=== PATIENT | female | born 1970 | race Caucasian/White ===

== ENCOUNTER 2024-08-16 13:50 | Emergency (ER) | payer OTHER, SELFPAY ==
[2024-08-16 14:26] LABS: % Eosinophils 3.4 % (0-6); % Immature Granulocytes 0.2 % (0-0.5); % Lymphocytes 38.2 % (20.5-51.1); % Monocytes 15.4 % (1.7-9.3); % Neutrophils 41.8 % (42.2-75.2); Absolute Basophils 0.1 10^3/uL (0-0.2); Absolute Eosinophils 0.2 10^3/uL (0-0.7); Absolute Lymphocytes 2.2 10^3/uL (1.2-3.4); Absolute Monocytes 0.9 10^3/uL (0.1-0.6); Absolute Neutrophils 2.4 10^3/uL (1.4-6.5); Hematocrit 42.1 % (37.0-47.0); Hemoglobin 14.3 g/dL (12.0-16.0); Mean Corpuscular Hgb 28.3 pg (27.0-31.0); Mean Corpuscular Volume 83.4 fL (81.0-99.0); Mean Platelet Volume 9.2 fL (7.4-10.4); Nucleated Red Blood Cells % 0 %; Platelet Count 270 10^3/uL (130-400); Red Blood Cell Count 5.05 10^6/uL (4.20-5.40); Red Cell Dist. Width 12.2 % (11.5-14.5); White Blood Cell Count 5.8 10^3/uL (4.8-10.8)
[2024-08-16 14:41] LABS: ALT (SGPT) 36 U/L (0-35); AST (SGOT) 37 U/L (14-36); Albumin 4.4 g/dl (3.5-5.0); Alkaline Phosphatase 73 U/L (38-126); Blood Urea Nitrogen 16 mg/dl (7-17); Calcium 9.3 mg/dl (8.4-10.2); Carbon Dioxide 30 mmol/L (22-30); Chloride 98 mmol/L (98-107); Glucose 94 mg/dl (70-99); Potassium 4.7 mmol/L (3.5-5.1); Sodium 136 mmol/L (135-145); Total Bilirubin 0.3 mg/dl (0.2-1.3); Total Protein 7.1 g/dl (6.3-8.2)
[2024-08-16 14:51] LABS: Troponin I < 0.012 ng/ml
[2024-08-16 14:54] LABS: eGFR 59.34
[2024-08-16 15:32] VITALS: BP 121/82
[2024-08-16 15:38] VITALS: BMI 27.5
[2024-08-16 16:00] VITALS: BP 128/83
[2024-08-16] MEDS: DECADRON 10 MG PO (16:23)
[2024-08-16] MEDS: MAALOX 40 PO (16:23)
--- NOTE | 2024-08-16 16:39 | ED.GENMED ---
History of Present Illness
General
Chief Complaint: Chest Pain
Source: patient and spouse
Exam Limitations: none
Time Seen by Provider: 08/16/24 15:25
Nursing documentation reviewed up to this point in time: agreed with
History of Present Illness
History of Present Illness:
54-year-old female presenting to the emergency department today for concerns of a burning achy discomfort to the left chest over the past few days. Has had an upper respiratory syndrome over the past 4 days. Believes it could be related. No
fevers today. Denies any significant shortness of breath nausea vomiting or diarrhea. Took some Ativan as she thought there could be some anxiety component without significant improvement.
Past History
Past History
ED Past Medical History: Other (bowel and bladder prolapse); Negative Asthma, HTN, Hypercholesterolemia or NIDDM
ED Past Surgical History: Gynecological (January 27 2015 Reconstruction of a prolapsed bladder/bowel with a hysterectomy)
Social History
Tobacco: Non-smoker
Alcohol: None
Drug: None
Personal:
Living: with family
Employment: Employed
Family History
Family History: Other
Review of Systems
Review of Systems
Allergies reviewed?: Yes
All Other Systems: ROS reviewed and negative except as documented in HPI and ROS
Phy Exam
Physical Exam
Physical Exam:
GENERAL: Alert , in no apparent distress
EYE: pupils equal and reactive
NECK: Supple, no significant adenopathy.
ENT: o/p clr, mmm.
CARDIAC: Regular rate and rhythm .
LUNGS: Clear breath sounds bilaterally, no acute respiratory distress, no wheezes/rales/rhonchi
ABDOMEN: Soft, without focal tenderness, no r/g, no cvat
NEUROLOGICAL: Alert and oriented, no focal neuro deficits
SKIN: Warm and dry, skin intact.
MUSCULOSKELETAL: No edema, well perfused.
PSYCH: Normal and appropriate interaction.
Scores
Heart Score for Chest Pain Patients
STEMI patient?: No
History: Slightly or Non-Suspicious
ECG: Normal
Age: >45 - <65 years
Risk Factors: 1 or 2 Risk Factors
Troponin: </= Normal Limit
Heart Score for Chest Pain Patients: 2
Heart Score Risk: 2.5% MACE over next 6 weeks
Course
Orders/Labs/Results
Orders:
Orders
08/16/24 13:51
Electrocardiogram (*1) Urgent
Reason for Study: Chest Pain
EKG- Treatment ONCE
08/16/24 14:02
CXR2 [CR Chest - 2 Views ] Urgent
Comment:
Reason For Exam: chest pain
08/16/24 14:11
Complete Blood Count/With Diff Urgent
Comprehensive Metabolic Panel Urgent
Troponin I Urgent
08/16/24 16:10
Dexamethasone [Decadron] 10 mg PO NOW STA
Mag Hydrox/Al Hydrox/Simeth [Maalox] 30 ml Phenobarb/Hyoscy/Atropine/Scop [] 10 ml PO NOW
08/16/24 16:20
Mag Hydrox/Al Hydrox/Simeth [Maalox] 30 ml .ROUTE .STK-MED ONE
Phenobarb/Hyoscy/Atropine/Scop [] 10 ml .ROUTE .STK-MED ONE
Abnormal Lab Results
08/16/24
14:11
Absolute Monos (auto) 0.9 H 10^3/uL
(0.1-0.6)
Neutrophils % 41.8 L %
(42.2-75.2)
Monocytes % 15.4 H %
(1.7-9.3)
Creatinine 1.1 H mg/dL
(0.6-1.0)
AST 37 H U/L
(14-36)
ALT 36 H U/L
(0-35)
08/16/24 14:11
08/16/24 14:11
Vital Signs
Initial and Last Documented VS:
Initial Vital Signs
Temp Pulse Resp Pulse Ox
98.2 F 99 16 99
08/16/24 13:59 08/16/24 13:59 08/16/24 13:59 08/16/24 13:59
Last Documented Vital Signs
Temp Pulse Resp BP Pulse Ox
98.2 F 79 12 128/83 96
08/16/24 13:59 08/16/24 16:15 08/16/24 16:15 08/16/24 16:00 08/16/24 16:15
MDM/Problems Addressed
MDM/Problems Addressed:
54-year-old female presenting to the emergency department today with concerns of chest pain. Here she has a normal EKG normal chest x-ray normal labs normal troponin level. Patient does have a viral syndrome over the past 4 days or so. On
examination she does have a very end expiratory wheeze and was given a dose of dexamethasone otherwise good air movement. Patient stable for outpatient follow-up no apparent life-threatening etiology. Return precautions given.
*Critical Care Note
Total Time (30-74mins, 75-104mins- exclusive of procedures): Not Applicable
ED Attending Note
-
Portions of this chart may have been created with voice recognition software.� Occasional wrong word or��sound alike� substitutions may have occurred due to the inherent limitations of voice recognition software.
Discharge Plan
Departure
Patient Disposition: Home (Routine Discharge)
Date of Disposition: 08/16/24
Time of Disposition: 16:39
Patient with high blood pressure during this ER visit?: No
Condition: Good
Covid-19: Not Applicable
Discharge Problem:
Chest pain
Instructions: Chest Pain PCP Follow Up
Prescriptions:
No Action
ascorbic acid (vitamin C) [Vitamin C] 500 MG tablet
500 mg PO DAILY
L.acid,casei,plant,saliv-B.ani [Probiotic Formula] 1 EACH capsule
1 ea PO TID
Fish Oil
3 cap PO DAILY
Vitamin B 100 Complex
1 tab PO DAILY
cyclobenzaprine [Flexeril] 10 MG tablet
10 mg PO TID PRN (Reason: SPASM) Qty: 10 0RF
oxycodone-acetaminophen 5 MG/325 MG tablet
1 tab PO Q4HPRN PRN (Reason: pain) Qty: 13 0RF
fluconazole 100 MG tablet
100 mg PO DAILY Qty: 2 0RF
phenazopyridine 100 MG tablet
100 mg PO TIDPRN PRN (Reason: bladder pain) Qty: 10 0RF
sulfamethoxazole-trimethoprim 1 TABLET tablet
1 tab PO BID 5 Days Qty: 9 0RF
Referrals:
Zainab Nance DO [Family Provider] -
Activity Restrictions/Additional Instructions:
You came to the emergency department today with concerns of chest discomfort. Here you had a reassuring assessment. Please follow closely with the primary care doctor for any ongoing symptoms. Return to the emergency department for any worsening,
new or concerning symptoms.
Interventions
Interventions:
*Risk Screen - Suicide Last Done: 08/16/24 13:59
*General Assessment Last Done: 08/16/24 15:38
*Neglect/Abuse Screening Last Done: 08/16/24 13:59
ED- Fall Risk Assessment Last Done: 08/16/24 15:38
*ED COVID-19 Vaccine History Last Done: 08/16/24 15:38
ED- Cardiac Assessment Last Done: 08/16/24 15:38
Discharge Date and Time
Print Language: M[place]ENEGR[place]
== END 2024-08-16 16:46 | disposition home or self-care (01) ==
LOC: EMR 13:50
PROVIDERS: Student in an Organized Health Care Education/Training Program; EMERGENCY PHYSICIAN Emergency Medicine; FAMILY PHYSICIAN Family Medicine
DX: R07.89 Other chest pain (principal); R06.2 Wheezing
CPT/HCPCS: 99285; 71046; 80053; 84484; 85025; 93005

== ENCOUNTER 2024-10-10 17:22 | Emergency (ER) | payer OTHER, SELFPAY ==
[2024-10-10 17:26] VITALS: BP 165/103
[2024-10-10 17:51] LABS: % Basophils 0.8 % (0-2); % Eosinophils 3.8 % (0-6); % Immature Granulocytes 0.2 % (0-0.5); % Lymphocytes 29.2 % (20.5-51.1); Absolute Basophils 0.1 10^3/uL (0-0.2); Absolute Eosinophils 0.4 10^3/uL (0-0.7); Absolute Lymphocytes 2.7 10^3/uL (1.2-3.4); Absolute Monocytes 0.9 10^3/uL (0.1-0.6); Absolute Neutrophils 5.2 10^3/uL (1.4-6.5); Hematocrit 41.8 % (37.0-47.0); Hemoglobin 14.1 g/dL (12.0-16.0); Mean Corp Hgb Conc. 33.7 g/dL (33.0-37.0); Mean Corpuscular Hgb 27.8 pg (27.0-31.0); Mean Corpuscular Volume 82.4 fL (81.0-99.0); Mean Platelet Volume 9.2 fL (7.4-10.4); Nucleated Red Blood Cells % 0 %; Platelet Count 350 10^3/uL (130-400); Red Blood Cell Count 5.07 10^6/uL (4.20-5.40); Red Cell Dist. Width 12.7 % (11.5-14.5); White Blood Cell Count 9.3 10^3/uL (4.8-10.8)
[2024-10-10 17:55] LABS: COVID-19 Antigen Negative (Negative)
[2024-10-10 18:01] LABS: ALT (SGPT) 23 U/L (0-35); AST (SGOT) 25 U/L (14-36); Albumin 4.4 g/dl (3.5-5.0); Alkaline Phosphatase 100 U/L (38-126); Blood Urea Nitrogen 8 mg/dl (7-17); Carbon Dioxide 29 mmol/L (22-30); Chloride 103 mmol/L (98-107); Glucose 100 mg/dl (70-99); Potassium 5.5 mmol/L (3.5-5.1); Sodium 138 mmol/L (135-145); Total Bilirubin 0.6 mg/dl (0.2-1.3); Total Protein 7.3 g/dl (6.3-8.2); eGFR > 60.00
--- NOTE | 2024-10-10 19:52 | ED.GENMED ---
History of Present Illness
General
Chief Complaint: Cold/Flu/URI Symptoms
Source: patient
Time Seen by Provider: 10/10/24 19:43
History of Present Illness
History of Present Illness:
54-year-old female presenting to the emergency department for evaluation of cold/flulike symptoms that began this past Tuesday including cough, sore throat, sinus congestion, fatigue, 'swollen glands' and over the last 24 hours has had increased
right ocular discharge. was sick last week with the flu. Patient did not do any tests at home. Presented to the ER tonight due to having the symptoms over the last 5 days. No recent antibiotics. No other concerns presently.
Past History
Past History
ED Past Medical History: Other (bowel and bladder prolapse); Negative Asthma, HTN, Hypercholesterolemia or NIDDM
ED Past Surgical History: Gynecological (January 27 2015 Reconstruction of a prolapsed bladder/bowel with a hysterectomy)
Social History
Tobacco: Non-smoker
Alcohol: None
Drug: None
Personal:
Living: with family
Employment: Employed
Family History
Family History: Other
Review of Systems
Review of Systems
All Other Systems: ROS reviewed and negative except as documented in HPI and ROS
Phy Exam
Physical Exam
Physical Exam:
GENERAL: Alert , in no apparent distress
HEAD: Normocephalic atraumatic
EYE: right eye conjunctival injection with Discharge noted along the medial canthus mild tonsillar erythema but no edema/exudates.
NECK: Supple, no significant adenopathy.
ENT: o/p clr, mmm. Left TM is mildly injected but no bulging/effusions. Right TM normal
CARDIAC: Regular rate and rhythm
LUNGS: Clear breath sounds bilaterally, no acute respiratory distress, no wheezes/rales/rhonchi
NEUROLOGICAL: Alert and oriented
SKIN: Warm and dry, skin intact.
MUSCULOSKELETAL: well perfused.
PSYCH: Normal and appropriate interaction.
Scores
Heart Failure Risk
Heart Failure Risk Score: Not Applicable
Heart Score for Chest Pain Patients
STEMI patient?: Not applicable
Withdrawal Assessment of Alcohol
Withdrawal Assessment Completed?: Not applicable
Course
Orders/Labs/Results
Orders:
Orders
10/10/24 17:35
COVID-19 Antigen Urgent
Source: Nasal Swab
Complete Blood Count/With Diff Urgent
Comprehensive Metabolic Panel Urgent
Influenza A+B Rapid Molecular Urgent
CESIILA Source: Nasal Swab
Specimen Description:
Abnormal Lab Results
10/10/24
17:35
Absolute Monos (auto) 0.9 H 10^3/uL
(0.1-0.6)
Monocytes % 10.0 H %
(1.7-9.3)
Potassium 5.5 H mmol/L
(3.5-5.1)
Glucose 100 H mg/dl
(70-99)
10/10/24 17:35
10/10/24 17:35
Vital Signs
Initial and Last Documented VS:
Initial Vital Signs
Temp Pulse Resp BP Pulse Ox
100 F 94 18 165/103 98
10/10/24 17:26 10/10/24 17:26 10/10/24 17:26 10/10/24 17:26 10/10/24 17:26
Last Documented Vital Signs
Temp Pulse Resp BP Pulse Ox
100 F 94 18 165/103 98
10/10/24 17:26 10/10/24 17:26 10/10/24 17:26 10/10/24 17:26 10/10/24 17:26
MDM/Problems Addressed
Differential Diagnosis Includes:
COVID, flu, pneumonia, other viral etiology, bacterial versus viral conjunctivitis
MDM/Problems Addressed:
54-year-old female presented to ER for evaluation of URI-like symptoms that been ongoing for the last 4 to 5 days, has been sick last week with the flu. On arrival patient had labs, COVID and flu testing ordered. Patient with no leukocytosis.
Potassium slightly elevated at 5.5 but no evidence for renal dysfunction which signifies likely hemolysis. Discussed performing chest x-ray with the patient however patient prefers to forego. Will give a prescription for Zithromax however I did
tell patient I suspect viral etiology is most likely and that I would hold the antibiotic for the next 2 to 3 days and if not having any improvement would then take the antibiotic. Will prescribe a topical antibiotic drops for the conjunctivitis
although again I do suspect symptoms are most likely viral. Continue snel-ras-stlypgh measures as needed. Discharge home and aware of return precautions.
*Pulse Oximetry
Patient hypoxic: no
ED Attending Note
-
Portions of this chart may have been created with voice recognition software.� Occasional wrong word or��sound alike� substitutions may have occurred due to the inherent limitations of voice recognition software.
Discharge Plan
Departure
Patient Disposition: Home (Routine Discharge)
Date of Disposition: 10/10/24
Time of Disposition: 19:52
Patient with high blood pressure during this ER visit?: Yes
Discharge Problem:
URI (upper respiratory infection), Acute conjunctivitis of right eye
Instructions: Upper respiratory infection in adults - Discharge instructions
Prescriptions:
New
azithromycin [Zithromax Z-Robson] 250 mg tablet
See Rx Instructions .ROUTE .COMPLEX Qty: 6 0RF
Rx Instructions:
Take 2 doses PO day 1, Take 1 tab PO remaining 4 days
polymyxin B sulf-trimethoprim 10,000 unit- 1 mg/mL drops
1 drp ophthalmic (eye) QID 7 Days Qty: 10 0RF
No Action
ascorbic acid (vitamin C) [Vitamin C] 500 MG tablet
500 mg PO DAILY
L.acid,casei,plant,saliv-B.ani [Probiotic Formula] 1 EACH capsule
1 ea PO TID
Fish Oil
3 cap PO DAILY
Vitamin B 100 Complex
1 tab PO DAILY
cyclobenzaprine [Flexeril] 10 MG tablet
10 mg PO TID PRN (Reason: SPASM) Qty: 10 0RF
oxycodone-acetaminophen 5 MG/325 MG tablet
1 tab PO Q4HPRN PRN (Reason: pain) Qty: 13 0RF
fluconazole 100 MG tablet
100 mg PO DAILY Qty: 2 0RF
phenazopyridine 100 MG tablet
100 mg PO TIDPRN PRN (Reason: bladder pain) Qty: 10 0RF
sulfamethoxazole-trimethoprim 1 TABLET tablet
1 tab PO BID 5 Days Qty: 9 0RF
Interventions
Interventions:
*Risk Screen - Suicide Last Done: 10/10/24 17:26
*Neglect/Abuse Screening Last Done: 10/10/24 17:26
*ED COVID-19 Vaccine History Last Done: 10/10/24 17:26
Discharge Date and Time
Print Language: THAI
[2024-10-10] MEDS: POLYTRIM OPHTHALMIC SOLUTION 1 DROP OPHTH (20:11)
== END 2024-10-10 20:15 | disposition home or self-care (01) ==
LOC: EMR 17:22
PROVIDERS: Emergency Medicine; EMERGENCY PHYSICIAN Emergency Medicine; FAMILY PHYSICIAN Family Medicine
DX: J06.9 Acute upper respiratory infection, unspecified (principal); H10.31 Unspecified acute conjunctivitis, right eye; E11.9 Type 2 diabetes mellitus without complications; I10 Essential (primary) hypertension; Z90.710 Acquired absence of both cervix and uterus
CPT/HCPCS: 99283; 80053; 85025; 87502; 87811

== ENCOUNTER 2025-04-14 04:44 | Emergency (ER) | payer OTHER, SELFPAY ==
[2025-04-14 04:49] VITALS: BP 168/108
[2025-04-14 05:16] VITALS: BMI 26.6
[2025-04-14 05:17] VITALS: BP 147/81
[2025-04-14 05:49] LABS: COVID-19 Antigen Negative (Negative)
[2025-04-14] MEDS: MOTRIN 600 MG PO (06:34)
--- NOTE | 2025-04-14 06:49 | ED.GENMED ---
History of Present Illness
General
Chief Complaint: Breathing Problem
Source: patient
Exam Limitations: none
Time Seen by Provider: 04/14/25 06:05
Nursing documentation reviewed up to this point in time: agreed with
History of Present Illness
History of Present Illness:
This is a 54-year-old woman with no significant past medical history other than chronic dry eye, blocked tear ducts. Recently underwent canaliculi stents to bilateral eyes last week.
She presents with URI symptoms, cough, low-grade fever, generalized aches that began several days ago. Her has had very similar symptoms that began a week prior to her symptoms and she believes she caught the same cold that he has. Cough
has been nonproductive. Cough is most bothersome when she lies down with difficulty sleeping. No shortness of breath.
No history of chronic lung disease. She is a non-smoker.
She took DayQuil yesterday afternoon.
Past History
Past History
ED Past Medical History: Other (bowel and bladder prolapse); Negative Asthma, HTN, Hypercholesterolemia or NIDDM
ED Past Surgical History: Gynecological (January 27 2015 Reconstruction of a prolapsed bladder/bowel with a hysterectomy)
Social History
Tobacco: Non-smoker
Alcohol: None
Drug: None
Personal:
Living: with family
Employment: Employed
Family History
Family History: Other
Phy Exam
Physical Exam
Physical Exam:
GENERAL: 54-year-old woman appears her stated age, awake and alert, pleasant, appears in no acute distress. Very mild, nasal, stuffy voice is noted. No respiratory distress. Oral temperature 99.1 �F.
EYE: pupils equal and reactive. anicteric
NECK: Supple, nontender, no meningismus, no significant adenopathy.
ENT: posterior pharynx is without injection, no exudate, scant pearly postnasal drip is noted, oral mucosa is moist. TM clear b/l, nares patent.
CARDIAC: Regular rate and rhythm. no murmur.
LUNGS: Clear breath sounds bilaterally, no acute respiratory distress, no wheezes/rales/rhonchi
ABDOMEN: Soft, nondistended, without focal tenderness, normoactive BS.
NEUROLOGICAL: Alert and oriented x3, no focal neuro deficits.
SKIN: Warm and dry, normal color, skin intact. No rash.
MUSCULOSKELETAL: No C/C/E. peripheral pulses are full and equal b/l. No palpable tenderness.
PSYCH: Normal and appropriate interaction.
Scores
Heart Failure Risk
Heart Failure Risk Score: Not Applicable
Sepsis
Sepsis Screening
Sepsis Assessment: Sepsis Ruled Out
Sepsis Screen
Sepsis Screen: Sepsis Ruled Out
Date: 04/14/25
Time: 07:01
Course
Orders/Labs/Results
Orders:
Orders
04/14/25 05:01
Chest [CR Chest - 2 Views ] Urgent
Comment:
Reason For Exam: shortness of breath
04/14/25 05:09
COVID-19 Antigen Urgent
Source: Nasal Swab
INF RAPID [Influenza A+B Rapid Molecular] Urgent
CESILIA Source: Nasal Swab
Specimen Description:
04/14/25 06:17
Ibuprofen [Motrin] 600 mg PO NOW STA
04/14/25 06:25
Promethazine [Phenergan Syrup] 5 ml PO NOW STA
04/14/25 06:45
Benzonatate [Tessalon Perles] 200 mg PO NOW STA
Vital Signs
Initial and Last Documented VS:
Initial Vital Signs
Temp Pulse Resp BP Pulse Ox
99 F 104 22 168/108 97
04/14/25 04:49 04/14/25 04:49 04/14/25 04:49 04/14/25 04:49 04/14/25 04:49
Last Documented Vital Signs
Temp Pulse Resp BP Pulse Ox
99 F 104 22 147/81 97
04/14/25 04:49 04/14/25 04:49 04/14/25 04:49 04/14/25 05:17 04/14/25 04:49
MDM/Problems Addressed
Differential Diagnosis Includes:
Concern for viral URI, COVID, influenza, pneumonia. Less likely CHF.
MDM/Problems Addressed:
Acute cough, URI, worse at nighttime.
COVID and influenza testing are negative.
Chest x-ray is unremarkable. Clear lung knowles. Normal heart size.
I suspect a viral URI.
Recommend supportive measures. Staying well-hydrated on a daily basis. Elevating head of bed on an extra pillow or tilt. Humidifier or vaporizer at nighttime.
Continue Tylenol versus ibuprofen as needed for fever, aches.
Will prescribe Phenergan DM for as needed cough as well as Tessalon for as needed cough.
Prompt follow-up with PCP for recheck.
*Radiology
Radiology exam reviewed: preliminary read by ED provider (Chest x-ray is unremarkable. Clear lung knowles. Normal heart size. Unchanged from previous.)
*Pulse Oximetry
SaO2: 97
Oxygen Mode of Delivery: Room air
Patient hypoxic: no
*Critical Care Note
Total Time (30-74mins, 75-104mins- exclusive of procedures): Not Applicable
ED Attending Note
-
Portions of this chart may have been created with voice recognition software.� Occasional wrong word or��sound alike� substitutions may have occurred due to the inherent limitations of voice recognition software.
Discharge Plan
Departure
Patient Disposition: Home (Routine Discharge)
Date of Disposition: 04/14/25
Time of Disposition: 06:49
Patient with high blood pressure during this ER visit?: Yes
Condition: Good
Discharge Problem:
Upper respiratory infection, viral
Instructions: Upper respiratory infection in adults - ED (DC), BLOOD PRESSURE
Prescriptions:
New
promethazine-DM 6.25-15 mg/5 mL syrup
5 ml PO QIDPRN PRN (Reason: cough) Qty: 240 0RF
benzonatate 200 mg capsule
200 mg PO TID PRN (Reason: cough) Qty: 30 0RF
No Action
ascorbic acid (vitamin C) [Vitamin C] 500 MG tablet
500 mg PO DAILY
Probiotic Formula 1 EACH capsule
1 ea PO TID
Fish Oil
3 cap PO DAILY
atorvastatin 10 mg Tablet
10 mg PO .3 TIMES A WEEK
Referrals:
Zainab Nance DO [Family Provider, Family Practice] - Call in 1-3 days for appt
Interventions
Interventions:
*Risk Screen - Suicide Last Done: 04/14/25 04:49
*General Assessment Last Done: 04/14/25 05:11
*Neglect/Abuse Screening Last Done: 04/14/25 04:49
*ED- Fall Risk Assessment Last Done: 04/14/25 05:11
*ED COVID-19 Vaccine History Last Done: 04/14/25 05:11
Discharge Date and Time
Print Language: [place]
[2025-04-14] MEDS: TESSALON PERLES 200 MG PO (06:51)
== END 2025-04-14 07:04 | disposition home or self-care (01) ==
LOC: EMR 04:44
PROVIDERS: EMERGENCY PHYSICIAN Emergency Medicine; FAMILY PHYSICIAN Family Medicine
DX: J06.9 Acute upper respiratory infection, unspecified (principal); R03.0 Elevated blood-pressure reading, without diagnosis of hypertension
CPT/HCPCS: 99284; 71046; 87502; 87811